=== PATIENT | female | born 1955 | race African-American/Black ===

== ENCOUNTER 2017-08-04 13:23 | Emergency (ER) | payer MEDICARE ==
[~2017-08-04] VITALS: Ht 162.6 cm; Wt 72.6 kg
[2017-08-04 13:30] VITALS: BP 129/86
[2017-08-04] MEDS ORDERED: Sodium Chloride 500ML 500 ML IV ONE (13:46)
--- NOTE | 2017-08-04 13:49 | Emergency Room Report ---
History of Present Illness General Chief Complaint: Dizziness Source: Patient, Medical Record Present Illness HPI Patient presents with complaints of severe dizziness Patient was singing in the choir When she began having the dizzy episode [place] like the room was spinning patient sat down and when looking at the ground she fell at the ground was spinning as well Denies any pain with this denies any chest pain denies any headache Denies any focal weakness Patient did become nauseated with it Denies any change in medications recently denies any fall or recent trauma denies any recent URI symptoms She feels that when she is laying down symptoms are improved Allergies: Coded Allergies: No Known Allergies (Unverified , 08/04/17) Patient History Past Medical History: see triage record Pertinent Family History: none Reviewed Nursing Documentation: PMH: Agreed; PSxH: Agreed Nursing Documentation-PMH Past Medical History: No History, Except For Review of Systems All Other Systems: negative except mentioned in HPI Physical Exam Vital Signs Date Time Temp Pulse Resp B/P (MAP) Pulse Ox O2 Delivery O2 Flow Rate FiO2 08/04/17 13:21 98.2 70 18 129/86 98 Room Air 98.2 Sp02 EP Interpretation: reviewed, normal General Appearance: well appearing, no apparent distress Head: normocephalic, atraumatic Eyes: bilateral eye PERRL, bilateral eye EOMI ENT: hearing grossly normal, normal pharynx, TMs + canals normal, uvula midline Neck: full range of motion, supple, no meningismus, no bony tend Respiratory: lungs clear, normal breath sounds, no rhonchi, no respiratory distress, no retraction, no accessory muscle use Cardiovascular #1: normal peripheral pulses, regular rate, rhythm, no edema, no gallop, no JVD, no murmur Gastrointestinal: normal bowel sounds, non tender, soft, no mass, no organomegaly, non-distended, no guarding, no hernia, no pulsatile mass, no rebound Genitourinary: no CVA tenderness Musculoskeletal: normal inspection Neurologic: oriented x3, responsive, 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, motor strength/ tone normal, sensory intact Psychiatric: mood/affect normal Skin: normal color, no rash, warm/dry, palpation normal Lymphatic: normal inspection, no adenopathy Medical Decision Making ER Course Given the patient's symptoms and the severity of the dizziness Extensive blood work was initiated including imaging of the brain Patient was provided with medications And at this time will have signed out to oncoming physician for follow-up on exam and final disposition Last Vital Signs Date Time Temp Pulse Resp B/P (MAP) Pulse Ox O2 Delivery O2 Flow Rate FiO2 08/04/17 13:30 98.2 72 18 129/86 98 Room Air 98.2 Signed Out To: Oncoming physician Scripts No Active Prescriptions or Reported Meds Ailyn Avilez DO Aug 04, 2017 13:48
[2017-08-04] MEDS ORDERED: Meclizine 25mg tab ORAL ONE (14:00)
[2017-08-04 14:13] LABS: BASOPHILS % (AUTO) 1.9 % (0.0-2.0); EOSINOPHILS % (AUTO) 0.6 % (0.0-3.0); HEMATOCRIT 39.8 % (37.0-47.0); HEMOGLOBIN 13.1 G/DL (12.0-16.0); MEAN CORPUSCULAR VOLUME 90 FL (80-99); MONOCYTES % (AUTO) 5.7 % (1.0-10.0); NEUTROPHILS % (AUTO) 42.7 % (45.0-75.0); PLATELET COUNT 263 K/UL (150-450); RED BLOOD COUNT 4.41 M/UL (4.20-5.40); RED CELL DISTRIBUTION WIDTH 11.2 % (11.6-14.8); WHITE BLOOD COUNT 5.8 K/UL (4.8-10.8)
[2017-08-04 14:25] LABS: ANION GAP 8 mmol/L (5-15); BLOOD UREA NITROGEN 13 mg/dL (7-18); CALCIUM 9.5 MG/DL (8.5-10.1); CARBON DIOXIDE 27 MMOL/L (21-32); CHLORIDE 102 MMOL/L (98-107); CREATININE 0.9 MG/DL (0.55-1.30); POTASSIUM 4.2 MMOL/L (3.5-5.1); SODIUM 137 MMOL/L (136-145)
[2017-08-04 14:37] LABS: ALANINE AMINOTRANSFERASE 28 U/L (12-78); ALKALINE PHOSPHATASE 120 U/L (46-116); ASPARTATE AMINO TRANSFERASE 28 U/L (15-37); BILIRUBIN,TOTAL 0.7 MG/DL (0.2-1.0); CKMB 0.8 NG/ML (0.0-3.6); CREATINE KINASE 124 U/L (26-308)
[2017-08-04 15:27] LABS: APPEARANCE,URINE CLEAR; BILIRUBIN, URINE NEGATIVE (NEGATIVE); COLOR,URINE PALE YELLOW; GLUCOSE, URINE (UA) 2+ (NEGATIVE); KETONES,URINE NEGATIVE (NEGATIVE); LEUKOCYTE ESTERASE ,URINE NEGATIVE (NEGATIVE); NITRITE,URINE NEGATIVE (NEGATIVE); PH,URINE 6 (4.5-8.0); PROTEIN,URINE NEGATIVE (NEGATIVE); UROBILINOGEN,URINE NORMAL MG/DL (0.0-1.0)
[2017-08-04] MEDS ORDERED: MECLIZINE HCL25 MG ORAL (15:47)
[2017-08-04 16:08] VITALS: BP 129/86
--- NOTE | 2017-08-05 07:53 | Diagnostic Imaging Report ---
Indication: Dizziness Technique: Continuous helical CT scanning of the head was performed utilizing automated exposure control without intravenous contrast material. Axial and coronal reconstructions were obtained. Comparison: None CT dose: Total DLP 1393.68 mGycm; CTDI vol 70.38 mGy Findings: There is no acute intracranial hemorrhage, mass effect or cortical edema. The ventricles, cisterns and sulci are in normal limits for age.Visualized mastoid air cells and paranasal sinuses are unremarkable. No focal lesions of the bony calvarium or soft tissues of the scalp are seen. Impression: No evidence of acute intracranial hemorrhage, mass effect or cortical edema. MRI may be obtained for more sensitive evaluation as clinically indicated. This corresponds with the [facility] preliminary report. The CT scanner at [facility] is accredited by the [employer] and the scans are performed using protocols designed to limit radiation exposure to as low as reasonably achievable to attain images of sufficient resolution adequate for diagnostic evaluation.
--- NOTE | 2017-08-05 12:26 | Diagnostic Imaging Report ---
Indication: Chest pain Technique: XRAY Chest 1v Comparison: None Findings: Heart size within normal limits for technique. There is no focal airspace consolidation, pleural effusion or pneumothorax. No acute osseous abnormality seen. Impression: No radiographic evidence of acute cardiopulmonary disease.
--- NOTE | 2017-08-05 12:31 | Cardiology Report ---
APPROVED REPORT EKG Measurement Heart [id number] VT [id number] [id number] Normal sinus rhythm Possible Lateral infarct, age undetermined Abnormal ECG
== END 2017-08-04 16:08 | disposition home or self-care (01) ==
LOC: EDBD 13:23 → EMR 15:57
DX: R42 Dizziness and giddiness (principal)
CPT/HCPCS: 36415; 70450; 71045; 80053; 81003; 82550; 82553; 83690; 84484; 85025; 93005; 96360; 99284; J7040